=== PATIENT | male | born 2000 | race Caucasian/White ===

== ENCOUNTER → 2023-06-28 10:13 | Outpatient (CLI) | payer BC, SELFPAY ==
--- NOTE | ~2023-06-28 | US_ITS ---
EXAMINATION: US soft tissue abdomen DATE: 06/28/2023 10:51 INDICATION: Right lower quadrant abdominal mass TECHNIQUE: Multiple grayscale and Doppler ultrasound images of the abdominal wall at the region of co ncern in the right lower quadrant were obtained. COMPARISON: None FINDINGS: There is a 9 x 9 x 6 mm region of increased echogenicity in the subcutaneous fat at the region of con cern which is without clearly defined margins. On color Doppler there is mild increased vascular flow within the region of increased echogenicity. No discrete masses or abnormal fluid collections identi fied. IMPRESSION: 1. 9 x 9 x 6 mm ill-defined region of suggesting fat with increased echogenicity and mildly increased vascular flow which is likely inflammatory in etiology. Reviewed, dictated and finalized at location A. IMPRESSION: 1. 9 x 9 x 6 mm ill-defined region of suggesting fat with increased echogenicit y and mildly increased vascular flow which is likely inflammatory in etiology.
== END ==
PROVIDERS: PCP Nurse Practitioner Family; Visit Provider Nurse Practitioner Family
DX: R19.03 Right lower quadrant abdominal swelling, mass and lump (principal); R93.5 Abnormal findings on diagnostic imaging of other abdominal regions, including retroperitoneum
CPT/HCPCS: 76705